=== PATIENT | female | born 1930 ===

== ENCOUNTER 2019-03-25 12:40 | Inpatient (IN) | payer OTHER ==
[~2019-03-25] VITALS: Ht 152.4 cm; Wt 94.3 kg
[2019-03-25] MEDS ORDERED: COZAAR100 MG (14:35)
[2019-03-25] MEDS ORDERED: AZITHROMYCIN250 MG (14:36)
[2019-03-25] MEDS ORDERED: PRAVASTATIN SOD10 MG (14:38)
[2019-03-25] MEDS ORDERED: DORZOLAMIDE-TI1 EACH (14:38)
[2019-03-25] MEDS ORDERED: ALLOPURINOL100 MG (14:38)
[2019-03-25] MEDS ORDERED: CLOPIDOGREL BIS75 MG (14:39)
[2019-03-25] MEDS ORDERED: TORSEMIDE5 MG (14:39)
[2019-03-25] MEDS ORDERED: APRESOLINE 10MG10 MG (14:39)
[2019-03-25] MEDS ORDERED: ADULT ASPIRIN81 MG (14:40)
[2019-03-25] MEDS ORDERED: ISOSORBIDE DINI20 MG (14:40)
[2019-03-25] MEDS ORDERED: CARVEDILOL3.125 MG (14:40)
[2019-03-30] MEDS ORDERED: MEDROL4 MG PO (16:33)
[2019-03-30] MEDS ORDERED: INTESTINEX680 M1 PO (16:33)
== END 2019-03-30 16:58 | disposition home or self-care (01) | DRG 190 ==
LOC: ER 12:40 → MEDI 20:55
PROVIDERS: ADMIT Internal Medicine
PROC: 3E0F7GC Introduction of Other Therapeutic Substance into Respiratory Tract, Via Natural or Artificial Opening (ICD-10-PCS; principal; 2019-03-25)
DX: J44.1 Chronic obstructive pulmonary disease with (acute) exacerbation (principal); J96.01 Acute respiratory failure with hypoxia; I13.0 Hypertensive heart and chronic kidney disease with heart failure and stage 1 through stage 4 chronic kidney disease, or unspecified chronic kidney disease; N17.8 Other acute kidney failure; I50.32 Chronic diastolic (congestive) heart failure; E87.2 Acidosis; J10.1 Influenza due to other identified influenza virus with other respiratory manifestations; N18.1 Chronic kidney disease, stage 1; E66.8 Other obesity; Z98.61 Coronary angioplasty status; Z99.81 Dependence on supplemental oxygen